=== PATIENT | female | born 1980 | race Caucasian/White ===

== ENCOUNTER 2017-08-29 12:37 | Emergency (ER) | payer MEDICAID ==
[~2017-08-29] VITALS: Ht 162.6 cm; Wt 77.1 kg
[~2017-08-29 12:37] MED LIST: IBUP-121 PO
[2017-08-29 12:47] VITALS: BP 130/83
--- NOTE | 2017-08-29 12:50 | NUR ---
Pt ambulated to chair A.
--- NOTE | 2017-08-29 12:56 | NUR ---
37/F presents to the ED with complaints of right 3rd digit pain x2 days. Pt has swelling, erythema, throbbing pain surrounding the nail bed and tip of finger for the past 2 days. Pt states "I don't know if something bit me but I just woke up with it." Pt c/o 8/10 pain, throbbing, constant, non radiating. Denies drainage, denies fever or chills. AOX4, upper sorbian speaking. VSS.
[2017-08-29] MEDS ORDERED: LIDOCAINE 1% 500 MG/50 ML VIAL INJ SCH (13:30)
--- NOTE | 2017-08-29 13:46 | NUR ---
I&D set up prepared.
[2017-08-29] MEDS ORDERED: LIDOCAINE MPF 1% - **ER/OR** 5 ML ONE (13:48)
[2017-08-29] MEDS: LIDOCAINE MPF 1% - **ER/OR** 10 MG/ML VIAL INJ ONE (14:17)
--- NOTE | 2017-08-29 14:17 | NUR ---
Dr. Saldivar performing I&D.
--- NOTE | 2017-08-29 14:31 | NUR ---
Dry dressing applied to finger. Non adherent gauze wrapped with kerlix and secured with tape. Pt tolerated well.
[2017-08-29 14:32] VITALS: BP 134/89
--- NOTE | 2017-08-29 14:32 | NUR ---
Patient discharged with v/s stable. Written and verbal after care instructions given and explained. Patient alert, oriented and verbalized understanding of instructions. Ambulatory with steady gait. All questions addressed prior to discharge. ID band removed. Patient advised to follow up with PMD. Rx of Cephalexin 500mg given. Patient educated on indication of medication including possible reaction and side effects. Opportunity to ask questions provided and answered.
== END 2017-08-29 14:32 | disposition home or self-care (01) ==
LOC: MED 12:37
DX: L03.011 Cellulitis of right finger (principal); J06.9 Acute upper respiratory infection, unspecified; Z79.899 Other long term (current) drug therapy
CPT/HCPCS: 10060; 99283; J2001

== ENCOUNTER 2019-05-26 14:23 | Emergency (ER) | payer MEDICAID ==
[~2019-05-26] VITALS: Ht 167.6 cm; Wt 77.1 kg
[2019-05-26 14:44] VITALS: BP 158/90
--- NOTE | 2019-05-26 14:56 | NUR ---
PT AMBULATED TO BED WITH DAUGHTER
--- NOTE | 2019-05-26 15:45 | NUR ---
C/O GENERALIZED BODYACHES & COUGH X3 DAYS ACCOMPANIED BY SORE THROAT AND EAR PAIN. LUNGS CAEB, O2 SAT RA 98%, NO LABORED BREATHING NOTED. DENIES FEVER, N/V/D. BED IN LOW POSITION, SIDE RAIL UP X1.
--- NOTE | 2019-05-26 15:45 | NUR ---
XRAY AT BEDSIDE
--- NOTE | 2019-05-26 15:50 | NUR ---
anabela rushing at bedside
[2019-05-26 17:16] VITALS: BP 141/84
--- NOTE | 2019-05-26 17:16 | NUR ---
Patient discharged with v/s stable. Written and verbal after care instructions given and explained. Patient alert, oriented and verbalized understanding of instructions. Ambulatory with steady gait. All questions addressed prior to discharge. ID band removed. Patient advised to follow up with PMD. Rx of cepacol & promethazine given. Patient educated on indication of medication including possible reaction and side effects. Opportunity to ask questions provided and answered.
== END 2019-05-26 17:16 | disposition home or self-care (01) ==
LOC: MED 14:23
DX: B34.9 Viral infection, unspecified (principal); Z79.899 Other long term (current) drug therapy
CPT/HCPCS: 71045; 99283; Q0092

== ENCOUNTER 2019-12-30 19:08 | Emergency (ER) | payer MEDICAID, SELFPAY ==
[~2019-12-30] VITALS: Ht 170.2 cm; Wt 78.9 kg
[2019-12-30 19:15] VITALS: BP 132/82
--- NOTE | 2019-12-30 19:59 | NUR ---
PT TAKEN TO BED 11
--- NOTE | 2019-12-30 20:00 | NUR ---
39 YO F BIB SELF FOR C/C OF 6/10 CHEST AND THROAT PAIN X4 HOURS. PT STATES IT FEELS LIKE HER HEART IS RACING AND HER HANDS ARE SHAKING. PT TOOK 500MG OF TYLENOL AT 1600 WITH SLIGHT DECREASE IN PAIN. VSS. [employer] IN[employer]CTOR IN PLACE. BED LOCKED AND IN LOWEST POSITION. SIDE RAILS X1. NKA NO MED HX NO RX
--- NOTE | 2019-12-30 20:03 | NUR ---
Dr. Bundy examining patient.
--- NOTE | 2019-12-30 20:20 | NUR ---
LABS COLLECTED AND SENT TO LAB
[2019-12-30 20:37] LABS: BASOPHILS % (AUTO) 0.3 % (0.0-2.0); EOSINOPHILS % (AUTO) 0.6 % (0.0-4.0); HEMATOCRIT 40.6 % (36-48); HEMOGLOBIN 13.5 g/dL (12.0-16.0); LYMPHOCYTES % (AUTO) 26.4 % (20.5-51.1); MEAN CORPUSCULAR HEMOGLOBIN 31 pg (27-31); MEAN CORPUSCULAR HGB CONC 33 g/dL (33-37); MEAN CORPUSCULAR VOLUME 92.8 fL (80-94); MONOCYTES # (AUTO) 0.4 K/uL (0.8-1.0); MONOCYTES % (AUTO) 4.9 % (1.7-9.3); NEUTROPHILS # (AUTO) 5.1 K/uL (1.8-7.7); NEUTROPHILS % (AUTO) 67.8 % (42.2-75.2); PLATELET COUNT (AUTO) 381 K/uL (140-450); RED BLOOD CELL COUNT(AUTO) 4.38 MIL/uL (4.20-5.40); RED CELL DISTRIBUTION WIDTH 12.7 % (11.6-13.7); WHITE BLOOD COUNT (AUTO) 7.5 K/uL (4.8-10.8)
[2019-12-30 20:43] LABS: ANION GAP 12.9 (8-16); CARBON DIOXIDE 28.1 mmol/L (21-32); CREATININE 0.8 mg/dL (0.6-1.3)
--- NOTE | 2019-12-30 20:44 | NUR ---
X-Ray at bedside.
[2019-12-30 22:29] VITALS: BP 113/78
--- NOTE | 2019-12-30 22:29 | NUR ---
Patient discharged with v/s stable. Written and verbal after care instructions given and explained. Patient verbalized understanding. Ambulatory with steady gait. All questions addressed prior to discharge. Advised to follow up with PMD.
== END 2019-12-30 22:29 | disposition home or self-care (01) ==
LOC: EEVIPCON 19:08 → MED 19:08
DX: R07.89 Other chest pain (principal); Z20.828 Contact with and (suspected) exposure to other viral communicable diseases; Z79.899 Other long term (current) drug therapy
CPT/HCPCS: 71045; 80048; 81002; 81025; 84484; 85025; 99284; Q0092